=== PATIENT | female | born 1980 | race Caucasian/White ===

== ENCOUNTER 2020-12-24 16:30 | Emergency (ER) | payer OTHER, SELFPAY ==
--- NOTE | 2020-12-24 16:36 | ED.SKABFB ---
HPI - Skin/Abscess/Foreign Bdy General Chief complaint: Skin/Abscess/Foreign Body Stated complaint: Insect Bite/Left Leg Time Seen by Provider: 12/24/20 16:36 Source: patient and RN notes reviewed History of Present Illness HPI narrative: Patient is a 40-year-old female who presents the urgent care with complaints of an insect bite to the left foot. Patient states that she has noticed the swelling and drainage from the wounds as of this morning. States that the bites have been there approximately 3 to 4 days. Patient denies of any pain, nausea, vomiting, fever. Patient has been putting Benadryl cream on the areas as well as hydrocortisone. No other acute complaints. No acute distress noted. Patient aware of the plan of care. Some parts of this dictation were generated by voice recognition software and may contain typographical and/or grammatical inaccuracies. Related Data Allergies Allergy/AdvReac Type Severity Reaction Status Date / Time No Known Allergies Allergy Unverified 02/12/18 17:37 Review of Systems Review of Systems: CONSTITUTIONAL: Denies fever, chills, or sweats. EYES: Denies visual changes, redness, or discharge. ENT: Denies rhinorrhea, congestion, sore throat, or otalgia. CARDIOVASCULAR: Denies chest pain, palpitations, or edema. RESPIRATORY: Denies cough or dyspnea. GASTROINTESTINAL: Denies abdominal pain, nausea, vomiting, or diarrhea. GENITOURINARY: Denies dysuria or hematuria. SKIN: Reports of swelling, redness and drainage from insect bites of the left foot MUSCULOSKELETAL: Denies back pain, joint pain, or myalgia. NEUROLOGIC: Denies headache, numbness, or weakness. All other systems reviewed are negative, except as documented in HPI. PMFSH Comments At the time of my signature, I reviewed and agree with the nursing past medical, surgical, social, and family history. There is no relevant family history pertinent to the patient complaint. Exam Narrative: GENERAL: This is a well-nourished, well-developed patient, in no apparent distress. HEAD: normocephalic, atraumatic. EYES: PERRL. Sclera clear/white. Vision is grossly intact. EARS: External ears normal NOSE: External nose normal with no obvious nasal discharge, nares without redness, no rhinorrhea. THROAT: Mucous membranes moist NECK: Neck supple CARDIOVASCULAR: Regular rate and rhythm without murmurs, gallops, or rubs. RESPIRATORY: Clear to auscultation. Breath sounds equal bilaterally. No wheezes, rales, or rhonchi. SKIN: 3 notable insect bites with surrounding cellulitic reaction to the left foot with clear drainage NEURO: awake, alert, and oriented to person, place and time. There were no obvious focal neurologic abnormalities. EXTREMITIES: 1+ pitting edema to the left lower extremity/foot with surrounding erythema measuring 7 x 8 cm. Course Vital Signs Vital signs: Vital Signs Temperature 98.0 F 12/24/20 16:38 Pulse Rate 70 12/24/20 16:38 Respiratory Rate 20 12/24/20 16:38 Blood Pressure 161/97 H 12/24/20 16:38 Pulse Oximetry 100 12/24/20 16:38 Temperature 98.0 F 12/24/20 16:38 Pulse Rate 70 12/24/20 16:38 Respiratory Rate 20 12/24/20 16:38 Blood Pressure 161/97 H 12/24/20 16:38 Pulse Oximetry 100 12/24/20 16:38 Reviewed-patient is informed that they may have pre-hypertension or hypertension based on a blood pressure reading in the department. I recommend the patient call the primary care provider listed on their discharge instructions or a physician of their choice this week to arrange follow-up for further evaluation of possible pre-hypertension or hypertension. MDM - Skin/Abscess/Foreign Bdy MDM Narrative Medical decision making narrative: Advised the patient to continue the [id number] hydrocortisone cream as needed. Complete the steroid regimen as prescribed. Complete the antibiotic regimen as prescribed. Be sure to eat and drink with medication to avoid nausea. May use Neosporin to the wounds as
[2020-12-24 16:38] VITALS: BP 161/97; PULSE 70; RESP 20; TEMP 36.7; O2SAT 100
== END 2020-12-24 17:00 | disposition home or self-care (01) ==
PROVIDERS: Emergency Provider Nurse Practitioner Family
DX: L03.116 Cellulitis of left lower limb (principal)
CPT/HCPCS: 99213; G0463

== ENCOUNTER 2023-03-13 17:49 | Emergency (ER) | payer OTHER, SELFPAY ==
[2023-03-13 17:55] VITALS: BP 156/82; PULSE 87; RESP 16; TEMP 36.9; O2SAT 99
--- NOTE | 2023-03-13 18:07 | ED.SKABFB ---
HPI - Skin/Abscess/Foreign Bdy General Chief complaint: Skin/Abscess/Foreign Body Stated complaint: Redness and swelling of left thigh History of Present Illness HPI narrative: Patient presents with an allergic reaction to an insect bite to her left thigh. Patient has swelling itching and local reaction to the area. No drainage no streaking no concern for infection. Patient states she has been taking Benadryl with minimal relief in her symptoms. Related Data Allergies Allergy/AdvReac Type Severity Reaction Status Date / Time No Known Allergies Allergy Unverified 03/13/23 18:02 Review of Systems Review of Systems: CONSTITUTIONAL: Denies chills, or sweats. Reports fever and generalized body aches EYES: Denies visual changes, redness, or discharge. ENT: Denies otalgia. Reports nasal congestion runny nose and sore throat CARDIOVASCULAR: Denies chest pain, palpitations, or edema. RESPIRATORY: Denies dyspnea. Reports occasional cough GASTROINTESTINAL: Denies abdominal pain, nausea, vomiting, or diarrhea. GENITOURINARY: Denies dysuria or hematuria. SKIN: Denies rash or itching. Insect bite with itching to left thigh MUSCULOSKELETAL: Denies back pain, joint pain, or myalgia. Reports generalized body aches NEUROLOGIC: Denies headache, numbness, or weakness. PSYCHIATRIC: Denies anxiety or depression. PMFSH Comments At time of signature, agree with nursing past medical, surgical, social and family history. There is no relevant family history pertinent to the presenting complaint Exam Narrative: GENERAL: Well-appearing, well-nourished, and in no acute distress. HEAD: Normocephalic, atraumatic. EYES: PERRLA and EOMI. ENT: Nares clear, no rhinorrhea or epistaxis. Mucous membranes moist. NECK: Supple. CHEST: Clear to auscultation. No respiratory distress. HEART: Regular rate and rhythm. No murmur heard. Normal peripheral pulses. ABDOMEN: Soft, nontender, nondistended, normal active bowel sounds. EXTREMITIES: Normal range of motion. No edema. SKIN: Warm, dry, no rash. Insect bite to left thigh with 1 cm area of swelling consistent with local reaction. No drainage no streaking no concern for infection. NEURO: No focal deficits. Alert and oriented x3. [place] Coma Scale Eye Opening: Spontaneous 4 [place] Coma Scale Motor: Obeys Commands 6 [place] Coma Scale Verbal: Oriented 5 [place] Coma Scale Total 15 Course Course Level of Care: Express Care Visit Vital Signs Vital signs: Vital Signs Temperature 36.9 C 03/13/23 17:55 Pulse Rate 87 03/13/23 17:55 Respiratory Rate 16 03/13/23 17:55 Blood Pressure 156/82 H 03/13/23 17:55 Pulse Oximetry 99 03/13/23 17:55 Oxygen Delivery Room Air 03/13/23 17:55 Temperature 36.9 C 03/13/23 17:55 Pulse Rate 87 03/13/23 17:55 Respiratory Rate 16 03/13/23 17:55 Blood Pressure 156/82 H 03/13/23 17:55 Pulse Oximetry 99 03/13/23 17:55 Oxygen Delivery Room Air 03/13/23 17:55 Please WARREN schedule a followup visit with your personal physician for further evaluation and treatment. Including recheck and discussion of your blood pressure. If your symptoms persist, change or worsen significantly before you can contact your personal physician then please, without delay, go to the emergency department for further evaluation Discharge Plan Discharge Clinical Impression: Insect bites Patient Disposition: Home, Self-Care Condition: Stable Instructions: Insect Bite or Sting (ED), General Allergic Reaction (ED) Additional Instructions: Home Care: 1.Apply [id number] hydrocortisone cream to the rash. 2.Soak in a bath with [place] Powder or Aveeno Oatmeal powder (available at drugstores) added to the water. 3.If your doctor thinks one of your medicines is causing the rash, your medicine will be changed or stopped. Tell future healthcare providers that you are allergic to this medicine. Follow Up with your doctor as advised by desiree
== END 2023-03-13 18:20 | disposition home or self-care (01) ==
PROVIDERS: Emergency Provider Nurse Practitioner Family
DX: S70.362A Insect bite (nonvenomous), left thigh, initial encounter (principal); W57.XXXA Bitten or stung by nonvenomous insect and other nonvenomous arthropods, initial encounter
CPT/HCPCS: 99213; G0463